=== PATIENT | female | born 1975 | race Caucasian/White ===

== ENCOUNTER 2017-10-15 01:37 | Emergency (ER) | payer SELFPAY ==
[2017-10-15] MEDS: LIDOCAINE 1% PF 30 ML VIAL. INJ (02:45)
[2017-10-15 03:04] LABS: BILIRUBIN,URINE NEGATIVE (NEG); CLARITY,URINE CLEAR; COLOR,URINE YELLOW; GLUCOSE,URINE NEGATIVE (NEG); NITRITE,URINE NEGATIVE (NEG); PH,URINE 6.5; PROTEIN,URINE NEGATIVE (NEG-TRACE); UROBILINOGEN,URINE 0.2 mg/dL (0.2 mg/dL)
[2017-10-15 03:05] LABS: URINE HCG POC HCG NEGATIVE (Negative)
[2017-10-15 03:24] LABS: BACTERIA,URINE FEW /HPF (0-FEW); RBC,URINE OCC /HPF (0-2); SQUAMOUS EPITHELIAL CELL,UR FEW /LPF; WBC,URINE >40 /HPF (0-4)
== END 2017-10-15 04:37 | disposition home or self-care (01) ==
LOC: ER 01:37
DX: R10.2 Pelvic and perineal pain (principal); Z90.49 Acquired absence of other specified parts of digestive tract
CPT/HCPCS: 81001; 81025; 87086; 99284

== ENCOUNTER 2020-10-03 01:48 | Emergency (ER) | payer SELFPAY ==
[~2020-10-03] VITALS: Ht 170.2 cm; Wt 70.0 kg
[~2020-10-03 01:48] MED LIST: ACET-704 PO
[2020-10-03] MEDS ORDERED: MORPHINE SULFATE 2 MG/ML VIAL. IV ONE (02:15)
--- NOTE | 2020-10-03 02:15 | PHYS DOC ---
Past Medical History Past Medical History: Arthritis Past Surgical History: Cholecystectomy, Other Additional Past Surgical Histo: HERNIA Smoking Status: Current Every Day Smoker Alcohol Use: None Drug Use: None General Adult EDM: Chief Complaint: ABDOMINAL PAIN HPI: HPI: Patient is a 44 year old female presents with the chief complaint of lower abdominal pain. Patient states has had pain on and off in LLQ x 3 days. Associated nausea without vomiting or diarrhea. Patient currently on menstrual cycle. Pain is rated 8/10 without radiation. Review of Systems: Review of Systems: Constitutional: Denies fever or chills. [] Eyes: Denies change in visual acuity. [] HENT: Denies nasal congestion or sore throat. [] Respiratory: Denies cough or shortness of breath. [] Cardiovascular: Denies chest pain or edema. [] GI: positive abdominal pain, positive nausea, NO vomiting, bloody stools or diarrhea. [] : Denies dysuria. [] Musculoskeletal: Denies back pain or joint pain. [] Integument: Denies rash. [] Neurologic: Denies headache, focal weakness or sensory changes. [] Endocrine: Denies polyuria or polydipsia. [] Lymphatic: Denies swollen glands. [] Psychiatric: Denies depression or anxiety. [] Heart Score: C/O Chest Pain: N/A Risk Factors: Risk Factors: DM, Current or recent (<one month) smoker, HTN, HLP, family history of CAD, obesity. Risk Scores: Score 0 - 3: 2.5% MACE over next 6 weeks - Discharge Home Score 4 - 6: 20.3% MACE over next 6 weeks - Admit for Clinical Observation Score 7 - 10: 72.7% MACE over next 6 weeks - Early Invasive Strategies Allergies: Allergies: Allergies Coded Allergies Type Severity Reaction Last Updated Verified No Known Drug Allergies 04/26/15 No Physical Exam: PE: Constitutional: Well developed, well nourished, no acute distress, non-toxic appearance. [] HENT: Normocephalic, atraumatic, bilateral external ears normal, oropharynx moist, no oral exudates, nose normal. [] Eyes: PERRLA, EOMI, conjunctiva normal, no discharge. [] Neck: Normal range of motion, no tenderness, supple, no stridor. [] Cardiovascular:Heart rate regular rhythm, no murmur [] Lungs & Thorax: Bilateral breath sounds clear to auscultation [] Abdomen: Bowel sounds normal, soft, positive tenderness LLQ, no masses, no pulsatile masses. [] Skin: Warm, dry, no erythema, no rash. [] Back: No tenderness, no CVA tenderness. [] Extremities: No tenderness, no cyanosis, no clubbing, ROM intact, no edema. [] Neurologic: Alert and oriented X 3, normal motor function, normal sensory function, no focal deficits noted. [] Psychologic: Affect normal, judgement normal, mood normal. [] Current Patient Data: Vital Signs: Vital Signs Date Time Temp Pulse Resp B/P (MAP) Pulse Ox O2 Delivery O2 Flow Rate FiO2 10/03/20 02:05 70 18 129/71 (90) 99 10/03/20 01:55 98.8 Room Air 98.8 EKG: EKG: [] Radiology/Procedures: Radiology/Procedures: [] Course & Med Decision Making: Course & Med Decision Making Pertinent Labs and Imaging studies reviewed. (See chart for details) [] Evaluated for chief complaint. Work-up consisted of laboratory analysis radiologic imaging. Results reviewed and discussed with patient. Patient's urine consistent with a urinary tract infection. CT imaging negative for acute abnormalities. Treatment included IV fluids and morphine. Patient's pain improved post treatment. Discharged home with Ultram and Macrobid. Rosanne Disclaimer: Rosanne Disclaimer: This electronic medical record was generated, in whole or in part, using a voice recognition dictation system. Departure Departure Impression: Primary Impression: Abdominal pain Disposition: HOME / SELF CARE / HOMELESS Condition: STABLE Referrals: NO PCP (PCP) Scripts Nitrofurantoin Monohyd/M-Cryst (MACROBID 100 MG CAPSULE) 100 Mg Capsule 1 CAP PO BID for 5 Days, #10 CAP 0 Refills Prov: JOSE L RAGLAND I DO 10/03/20 Tramadol Hcl (ULTRAM) 50 Mg Tablet 1 TAB PO PRN Q6HRS PRN for pain MDD 4 Tablet(s) for 7 Days, #14 TAB 0 Refills Prov: JOSE L RAGLAND I DO 10/03/20 JOSE L RAGLAND I DO Oct 03, 2020 02:14
[2020-10-03 02:19] LABS: BILIRUBIN,URINE NEGATIVE (NEG); CLARITY,URINE CLEAR; COLOR,URINE YELLOW; NITRITE,URINE NEGATIVE (NEG); PH,URINE 6.5 (<5.0-8.0); PROTEIN,URINE NEGATIVE (NEG-TRACE)
[2020-10-03 02:26] LABS: BASO # 0.1 x10^3/uL (0.0-0.2); BASO % 1 % (0-3); EOS # 0.3 x10^3/uL (0.0-0.7); EOS % 5 % (0-3); HEMATOCRIT 37.6 % (36.0-47.0); HEMOGLOBIN 12.6 g/dL (12.0-15.5); LYMPH # 2.5 x10^3/uL (1.0-4.8); LYMPH % 39 % (24-48); MEAN CORPUSCULAR HEMOGLOBIN 30 pg (25-35); MEAN CORPUSCULAR HGB CONC 34 g/dL (31-37); MEAN CORPUSCULAR VOLUME 90 fL (79-100); MONO # 0.5 x10^3/uL (0.0-1.1); MONO % 8 % (0-9); NEUT % 46 % (31-73); PLATELET COUNT 370 x10^3/uL (140-400); RED BLOOD COUNT 4.18 x10^6/uL (3.50-5.40); WHITE BLOOD COUNT 6.5 x10^3/uL (4.0-11.0)
[2020-10-03 02:31] LABS: BACTERIA,URINE FEW /HPF (0-FEW); TRICHOMONAS,URINE PRESENT
[2020-10-03 02:33] LABS: CALCIUM 8.6 mg/dL (8.5-10.1); CREATININE 0.8 mg/dL (0.6-1.0); GFR 77.2
[2020-10-03 02:39] LABS: ALBUMIN 3.9 g/dL (3.4-5.0); ALBUMIN/GLOBULIN RATIO 1.3 (1.0-1.7); TOTAL BILIRUBIN 0.4 mg/dL (0.2-1.0); TOTAL PROTEIN 6.8 g/dL (6.4-8.2)
[2020-10-03] MEDS ORDERED: IOHEXOL 300 MG/ML 100ML VIAL. IV ONE (03:15)
[2020-10-03] MEDS ORDERED: CONTRAST GIVEN. MC PRN (03:15)
--- NOTE | 2020-10-03 03:57 | RAD ---
CT abdomen and pelvis with contrast: Reason for examination: Abdominal pain in the left lower quadrant. Helical images were obtained through the abdomen and pelvis with intravenous administration of 75 cc Omnipaque 300. Reconstruction was performed in sagittal and coronal planes. Exposure: One or more of the following individualized dose reduction techniques were utilized for thi s examination: 1. Automated exposure control 2. Adjustment of the mA and/or kV according to patient size 3. Use of iterative reconstruction technique. Lung bases are clear. The heart size is normal with no pericardial effusion. No abnormality seen at the liver, spleen, adrenal glands or pancreas. The gallbladder surgically abse nt. Common bile duct is dilated at 12 mm post cholecystectomy. The abdominal aorta and inferior vena cava show no acute abnormalities. The colon shows no diverticulosis, diverticulitis or colitis. The a ppendix is not identified. The small intestinal tract shows no abnormal dilatation, wall thickening o r apparent obstruction. No abnormality seen at the stomach or duodenum. The kidneys show no renal mas ses, renal calculi, hydronephrosis or evidence of obstructive uropathy. No abnormality seen at the bladder, uterus or adnexa. No free fluid or free air is seen in the abdome n or pelvis. There are some calcifications in the anterior pelvic mesentery around the umbilicus whic h may be related to hernia repair. No acute bony abnormalities are seen. IMPRESSION: Dilated common bile duct 12 mm post cholecystectomy. No other acute abnormalities evident in the abdomen or pelvis. Electronically signed by: Kylie Esquivel MD (10/03/2020 3:55 AM) [facility]
[2020-10-03 04:30] VITALS: BP 132/80
[2020-10-03] MEDS ORDERED: NITR100C62 PO (04:32)
[2020-10-03] MEDS ORDERED: TRAM-48 PO (04:32)
== END 2020-10-03 04:35 | disposition home or self-care (01) ==
LOC: ER 01:48
DX: R10.32 Left lower quadrant pain (principal); R11.0 Nausea; F17.200 Nicotine dependence, unspecified, uncomplicated; Z90.49 Acquired absence of other specified parts of digestive tract
CPT/HCPCS: 36415; 74177; 80053; 81001; 81025; 83690; 85025; 87086; 96374; 99285; J2270; Q9967